=== PATIENT | female | born 1990 | race Caucasian/White ===

== ENCOUNTER 2019-10-07 13:22 | Emergency (ER) | payer SELFPAY ==
[~2019-10-07] VITALS: Ht 162.6 cm; Wt 54.4 kg
--- NOTE | 2019-10-07 14:00 | NUR ---
ED Nurse Note: Pt walked in from home c/o shortness of breath, possible allergic resction. Pt was seen by three other hospitals and given steroids, but she says she "still doesn't feel good." Respirations even and unlabored on room air. Vitals stable as documented. ED MD @ bedside
--- NOTE | 2019-10-07 14:07 | Emergency Room Report ---
History of Present Illness General Chief Complaint: Allergic Reaction Source: Patient Present Illness HPI Disclaimer: Please note that this report is being documented using [employer] technology. This can lead to erroneous entry secondary to incorrect interpretation by the dictating instrument. HPI: 29-year-old female presents for evaluation of shortness of breath and sore throat. Patient states she had allergic reaction 4 days ago after eating a green sauce with cilantro and possibly avocado. She believes she has an avocado allergy but is never had full allergy testing. She was seen over the past few days at 3 different emergency departments and prescribed prednisone, famotidine, Benadryl. She stopped taking the prednisone after the first day because it upset her stomach. Continues to complain of a scratchy throat and swollen lymph nodes. Denies any wheezing, vomiting, urticaria, loss of conscious, vomiting, diarrhea, lightheadedness, changes in her vision or other changes in her health. PMH: Denies PSH: Denies Allergies: Avocado possibly Social Hx: THC use Allergies: Coded Allergies: No Known Allergies (Unverified , 10/07/19) Patient History Now: No Nursing Documentation-PMH Past Medical History: No Stated History Review of Systems All Other Systems: negative except mentioned in HPI Physical Exam Vital Signs Date Time Temp Pulse Resp B/P (MAP) Pulse Ox O2 Delivery O2 Flow Rate FiO2 10/07/19 13:29 98.1 86 18 120/80 (93) 100 Room Air General: Awake and alert, no acute distress HEENT: NC/AT. EOMI. PERRLA. Anicteric sclera. Uvula midline. Tonsils are 2+, nonedematous, nonerythematous, no exudate. No pharyngeal obstruction. No lip or tongue swelling. Neck: Supple, trachea midline, no lymphadenopathy Cardiovascular: RRR. S1 and S2 normal. No murmur appreciated Resp: Normal work of breathing. No cough, wheezing or crackles appreciated Abdomen: Abdomen is soft, nondistended. Nontender Skin: Intact. No abrasions, laceration or rash over the exposed skin. No urticaria, no ulcerations, no breakdown MSK: Normal tone and bulk. Moving all extremities. No obvious deformity. Neuro: Awake and alert. Mentating appropriately. Medical Decision Making Diagnostic Impression: Primary Impression: Allergic reaction ER Course 29-year-old female presents with complaints of shortness of breath and subjective throat closure sensation. She has been treated for a minor allergic reaction, possibly to food, a few days ago. No longer taking prednisone but continues famotidine and Benadryl. She arrives with stable vital signs, no acute distress, no wheezing, no urticaria no signs of anaphylaxis or other allergic reaction at this time. She has had x-rays, blood work performed over the past few days at other emergency departments all of which are within normal limits and the patient has them in printed format for review. Do not believe she requires any further testing at this time. 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 She has been prescribed an EpiPen. I offered her Solu- Medrol or Decadron but the patient declined. Believe she is safe for outpatient follow-up. Encouraged her continue using her medications as prescribed at her other emergency department visits. Discussed reasons to return to the emergency department and signs of anaphylaxis. She understands and agrees with this treatment plan. Last Vital Signs Date Time Temp Pulse Resp B/P (MAP) Pulse Ox O2 Delivery O2 Flow Rate FiO2 10/07/19 13:29 98.1 86 18 120/80 (93) 100 Room Air Disposition: HOME, SELF-CARE Condition: Stable Ariel Camara MD Oct 07, 2019 14:07
[2019-10-07 14:08] VITALS: BP 122/84
[2019-10-07] MEDS ORDERED: BANOPHEN25 MG PO (14:41)
[2019-10-07] MEDS ORDERED: FAMOTIDINE20 MG ORAL (14:41)
[2019-10-07 15:15] VITALS: BP 121/89
--- NOTE | 2019-10-07 15:15 | NUR ---
ER DISCHARGE NOTE:Patient is cleared to be discharged per ERMD, pt is aox4, on room air, with stable vital signs. pt was given dc instructions, pt was able to verbalize understanding, pt id band removed. pt is able to ambulate with steady gait. pt took all belongings.
== END 2019-10-07 15:15 | disposition home or self-care (01) ==
LOC: EMR 14:51
DX: T78.40XA Allergy, unspecified, initial encounter (principal); X58.XXXA Exposure to other specified factors, initial encounter
CPT/HCPCS: 99282